=== PATIENT | female | born 1965 | race Asian ===

== ENCOUNTER 2019-02-18 07:45 | Day surgery (SDC) | payer OTHER ==
[~2019-02-18] VITALS: Ht 30.5 cm; Wt 0.5 kg
[2019-02-18 09:58] LABS: PLATELET COUNT 276 K/uL (152-353)
[2019-02-18 10:00] LABS: POTASSIUM 4.1 mmol/L (3.6-5.2)
== END 2019-02-18 11:07 | disposition home or self-care (01) ==
LOC: OR 07:45
PROVIDERS: Pain Medicine Interventional Pain Medicine
PROC: 3E0T3TZ Introduction of Destructive Agent into Peripheral Nerves and Plexi, Percutaneous Approach (ICD-10-PCS; principal; 2019-02-18)
DX: M17.11 Unilateral primary osteoarthritis, right knee (principal)
CPT/HCPCS: 80053; 85027; J2001; J2704

== ENCOUNTER 2019-04-29 09:00 | Day surgery (SDC) | payer OTHER ==
[~2019-04-29] VITALS: Ht 200.7 cm; Wt 169.6 kg
== END 2019-04-29 11:20 | disposition home or self-care (01) ==
LOC: OR 09:00
PROC: 3E0R33Z Introduction of Anti-inflammatory into Spinal Canal, Percutaneous Approach (ICD-10-PCS; principal; 2019-04-29)
PROC: B01BYZZ Fluoroscopy of Spinal Cord using Other Contrast (ICD-10-PCS; 2019-04-29)
DX: M51.16 Intervertebral disc disorders with radiculopathy, lumbar region (principal)
CPT/HCPCS: J1020

== ENCOUNTER 2019-06-30 07:45 | Day surgery (SDC) | payer OTHER | END 2019-06-30 09:10 | disposition home or self-care (01) | LOC: OR 07:45 | PROC: 3E0T3BZ Introduction of Anesthetic Agent into Peripheral Nerves and Plexi, Percutaneous Approach (ICD-10-PCS; principal; 2019-06-30) | PROC: BR16YZZ Fluoroscopy of Lumbar Facet Joint(s) using Other Contrast (ICD-10-PCS; 2019-06-30) | DX: M47.817 Spondylosis without myelopathy or radiculopathy, lumbosacral region (principal) | CPT/HCPCS: J1100; J2001 ==

== ENCOUNTER 2019-09-15 08:23 | Day surgery (SDC) | payer OTHER | END 2019-09-15 09:55 | disposition home or self-care (01) | LOC: OR 08:23 | PROC: 3E0T3TZ Introduction of Destructive Agent into Peripheral Nerves and Plexi, Percutaneous Approach (ICD-10-PCS; principal; 2019-09-15) | PROC: BR16YZZ Fluoroscopy of Lumbar Facet Joint(s) using Other Contrast (ICD-10-PCS; 2019-09-15) | DX: M47.817 Spondylosis without myelopathy or radiculopathy, lumbosacral region (principal) | CPT/HCPCS: J2001 ==

== ENCOUNTER 2019-10-06 08:04 | Day surgery (SDC) | payer OTHER | END 2019-10-06 09:35 | disposition home or self-care (01) | LOC: OR 08:04 | PROC: 3E0T3TZ Introduction of Destructive Agent into Peripheral Nerves and Plexi, Percutaneous Approach (ICD-10-PCS; principal; 2019-10-06) | PROC: BR16YZZ Fluoroscopy of Lumbar Facet Joint(s) using Other Contrast (ICD-10-PCS; 2019-10-06) | DX: M47.817 Spondylosis without myelopathy or radiculopathy, lumbosacral region (principal) | CPT/HCPCS: J2001 ==

== ENCOUNTER 2021-02-27 14:45 | Outpatient (CLI) | payer OTHER ==
[2021-02-27 15:14] LABS: PLATELET COUNT 317 K/uL (152-353)
[2021-02-27 15:26] LABS: POTASSIUM 4.6 mmol/L (3.6-5.2)
== END 2021-02-27 19:56 | disposition home or self-care (01) ==
LOC: LAB 14:45
PROVIDERS: ATTEND Nurse Practitioner Family
DX: Z00.00 Encounter for general adult medical examination without abnormal findings (principal); I10 Essential (primary) hypertension; E78.49 Other hyperlipidemia; M51.16 Intervertebral disc disorders with radiculopathy, lumbar region; M50.20 Other cervical disc displacement, unspecified cervical region; F11.20 Opioid dependence, uncomplicated; M17.11 Unilateral primary osteoarthritis, right knee; M47.817 Spondylosis without myelopathy or radiculopathy, lumbosacral region; R60.0 Localized edema; L30.4 Erythema intertrigo; E11.9 Type 2 diabetes mellitus without complications; J30.2 Other seasonal allergic rhinitis; G62.89 Other specified polyneuropathies; Z79.899 Other long term (current) drug therapy
CPT/HCPCS: 80053; 80061; 82607; 83036; 84439; 84443; 84550; 85027; 86140